=== PATIENT | female | born 1935 | race Caucasian/White ===

== ENCOUNTER → 2017-03-09 | Outpatient (CLI) | payer MEDICARE, BC ==
[2014-12-08 14:00] VITALS: BP 112/64
[~2017-03-09] MED LIST: APIX2.5T PO; ASPI325T8 PO; ATOR20TA58 PO; CARV6.25 PO; CHOL10003 PO; FLEC100T PO; FLUT1DIS IH; HYDR1TAB12 PO; LENA5CAP PO; OMEP20CA5 PO; ONDA8TAB9 PO; VIT1CAPS12 PO
--- NOTE | 2017-03-09 11:12 | CARD ---
MR#: [id number] Date of Study: 03/09/2017 Ordering Physician: ORALIA EMERSON, Referring Physician: ORALIA EMERSON, Reg: Odette Lerner RCS5 APPROVED REPORT EXAM: Two-dimensional and M-mode echocardiogram with Doppler and color Doppler. Other Information Quality : Average INDICATION Abnormal ECG Tachycardia 2D DIMENSIONS Left Atrium(2D)3.8 (1.6-4.0cm)IVSd0.7 (0.7-1.1cm) Aortic Root(2D)2.6 (2.0-3.7cm)LVDd4.8 (3.9-5.9cm) LVOT Diameter1.8 (1.8-2.4cm)PWd0.7 (0.7-1.1cm) LVDs3.2 (2.5-4.0cm)FS (%) 32.0 % SV67.1 mlLVEF(%)60.0 (>50%) Aortic Valve AoV Peak Matti.250.9cm/sAoV VTI61.3cm AO Peak GR.25.2mmHgLVOT Peak Matti.79.2cm/s LVOT VTI 18.48cmAO Mean GR.15mmHg Mitral Valve MV E Scvebggi093.8cm/sMV DECEL NYET668im MV A Gslnnlga38.8cm/sE/A Ratio1.5 Tricuspid Valve TR P. Lrmioznz10ed/sRAP ATMYULSA5csWo TR Peak Gr.45brWqBONZ52klBw LEFT VENTRICLE The left ventricle is normal size. There is normal left ventricular wall thickness. The left ventricu lar systolic function is normal. The Ejection Fraction is 55-60%. There is normal LV segmental wall m otion. RIGHT VENTRICLE The right ventricle is normal size. There is normal right ventricular wall thickness. The right ventr icular systolic function is normal. There is a pacer wire seen in the right ventricle. ATRIA The left atrium size is normal. The right atrium size is normal. There is a pacer wire seen in the ri ght atria. The interatrial septum is intact with no evidence for an atrial septal defect or patent fo ramen ovale as noted on 2-D or Doppler imaging. AORTIC VALVE The aortic valve is mildly to moderately sclerotic. Doppler and Color Flow revealed mild aortic regur gitation. There is mild valvular aortic stenosis. MITRAL VALVE The mitral valve is normal in structure and function. There is no evidence of mitral valve prolapse. There is no mitral valve stenosis. Doppler and Color-flow revealed trace mitral regurgitation. TRICUSPID VALVE The tricuspid valve is normal in structure and function. Doppler and Color Flow revealed mild tricusp id regurgitation. PULMONIC VALVE The pulmonary valve is normal in structure and function. Doppler and Color Flow revealed trace pulmon ic valvular regurgitation. GREAT VESSELS The aortic root is normal in size. The ascending aorta is normal in size. The IVC is normal in size a nd collapses >50% with inspiration. PERICARDIAL EFFUSION There is no pleural effusion. There is no evidence of significant pericardial effusion. Critical Notification Critical Value: No <Conclusion> The left ventricular systolic function is normal. The Ejection Fraction is 55-60%. There is normal LV segmental wall motion. Mild valvular aortic stenosis. Regurgitant jet not well interrogated but there ia atleast mild aortic regurgitation. Trace mitral regurgitation. Mild tricuspid regurgitation. There is no evidence of significant pericardial effusion. Signed by : Oralia Emerson, Electronically Approved : 03/09/2017 11:12:18
== END | disposition home or self-care (01) ==
LOC: ECHO 08:41
PROVIDERS: ATTEND Internal Medicine Cardiovascular Disease
DX: I49.5 Sick sinus syndrome (principal); I08.3 Combined rheumatic disorders of mitral, aortic and tricuspid valves; I10 Essential (primary) hypertension; Z87.891 Personal history of nicotine dependence
CPT/HCPCS: 93306

== ENCOUNTER → 2018-06-07 | Outpatient (CLI) | payer MEDICARE, BC ==
[2014-12-08 14:00] VITALS: BP 112/64
[~2018-06-07] MED LIST changes: -HYDR1TAB12 PO; +HYDR1TAB13 PO
--- NOTE | 2018-06-07 09:36 | CARD ---
MR#: [id number] Date of Study: 06/07/2018 Ordering Physician: ORALIA DUMAS, Referring Physician: ORALIA DUMAS Tech: Nilsa Malhotra RDCS APPROVED REPORT EXAM: Two-dimensional and M-mode echocardiogram with Doppler and color Doppler. Other Information Quality : AverageHR: 61bpm Rhythm : Pacemaker INDICATION Arrhythmia 2D DIMENSIONS RVDd2.9 (2.9-3.5cm)Left Atrium(2D)4.0 (1.6-4.0cm) IVSd1.1 (0.7-1.1cm)Aortic Root(2D)2.4 (2.0-3.7cm) LVDd4.6 (3.9-5.9cm)LVOT Diameter1.9 (1.8-2.4cm) PWd0.9 (0.7-1.1cm)LVDs3.1 (2.5-4.0cm) FS (%) 32.7 %SV58.4 ml LVEF(%)61.2 (>50%) M-Mode DIMENSIONS Left Atrium(MM)4.37 (2.5-4.0cm)Aortic Root2.46 (2.2-3.7cm) Aortic Valve AoV Peak Matti.255.8cm/sAoV VTI69.7cm AO Peak GR.26.2mmHgLVOT Peak Matti.86.4cm/s LVOT VTI 23.27cmAO Mean GR.14mmHg TRAY (VMAX)1.21ql9UNR (VTI)1.10cm2 AI P 1/2 Znna977wh Mitral Valve MV E Sszilucj29.4cm/sMV DECEL WBOA309xm MV A Shvfsxnu73.4cm/sE/A Ratio1.6 MV A Yxxzzpte520tm Pulmonary Valve PV Peak Myouprrv362.4cm/sPV Peak Grad.4mmHg Tricuspid Valve TR P. Ozzziqkc632nf/sRAP DVKFJBAP1xgDv TR Peak Gr.64hwRvAOSE46fgFs LEFT VENTRICLE The left ventricle is normal size. Proximal septal thickening is noted. The left ventricular systolic function is normal. The Ejection Fraction is 60-65%. There is normal LV segmental wall motion. Trans mitral Doppler flow pattern is Grade II-pseudonormal filling dynamics. RIGHT VENTRICLE The right ventricle is normal size. There is normal right ventricular wall thickness. The right ventr icular systolic function is normal. ATRIA The left atrium is mildly dilated. The right atrium size is normal. The interatrial septum is intact with no evidence for an atrial septal defect or patent foramen ovale as noted on 2-D or Doppler imagi ng. AORTIC VALVE The aortic valve is moderately calcified. Doppler and Color Flow revealed mild aortic regurgitation. There is mild to moderate valvular aortic stenosis. Calculated aortic valve area is 1.1 cm2 with maxi mum pressure gradient of 26 mmHg and mean pressure gradient of 14 mmHg. MITRAL VALVE The mitral valve is thickened but opens well. There is no evidence of mitral valve prolapse. There is no mitral valve stenosis. Doppler and Color Flow revealed no mitral valve regurgitation noted. TRICUSPID VALVE The tricuspid valve is normal in structure and function. Doppler and Color Flow revealed mild tricusp id regurgitation. There is moderate pulmonary hypertension. The PA pressure was estimated at 46 mmHg. There is no tricuspid valve prolapse or vegetation. There is no tricuspid valve stenosis. PULMONIC VALVE The pulmonic valve is not well visualized. GREAT VESSELS The aortic root is normal in size. The ascending aorta is normal in size. The IVC is normal in size a nd collapses >50% with inspiration. PERICARDIAL EFFUSION There is no evidence of significant pericardial effusion. Critical Notification Critical Value: No <Conclusion> The left ventricular systolic function is normal. The Ejection Fraction is 60-65%. There is normal LV segmental wall motion. There is mild to moderate valvular aortic stenosis. Mild aortic regurgitation. Mild tricuspid regurgitation. The PA pressure was estimated at 46 mmHg. There is no evidence of significant pericardial effusion. Signed by : Oralia Dumas, Electronically Approved : 06/07/2018 09:35:36
== END | disposition home or self-care (01) ==
LOC: ECHO 07:40
PROVIDERS: ATTEND Internal Medicine Cardiovascular Disease
DX: I08.2 Rheumatic disorders of both aortic and tricuspid valves (principal); I27.20 Pulmonary hypertension, unspecified; I49.5 Sick sinus syndrome; Z87.891 Personal history of nicotine dependence
CPT/HCPCS: 93306

== ENCOUNTER → 2019-07-18 | Outpatient (CLI) | payer MEDICARE, BC ==
[2014-12-08 14:00] VITALS: BP 112/64
--- NOTE | 2019-07-18 16:01 | CARD ---
MR#: [id number] Date of Study: 07/18/2019 Ordering Physician: ORALIA EMERSON, Referring Physician: ORALIA EMERSON Tech: Jessika Blanco RDCS APPROVED REPORT EXAM: Two-dimensional and M-mode echocardiogram with Doppler and color Doppler. Other Information Quality : Good INDICATION Tachy Syndrome, Pacemaker 2D DIMENSIONS RVDd2.7 (2.9-3.5cm)Left Atrium(2D)3.9 (1.6-4.0cm) IVSd1.0 (0.7-1.1cm)Aortic Root(2D)2.6 (2.0-3.7cm) LVDd5.0 (3.9-5.9cm)LVOT Diameter2.1 (1.8-2.4cm) PWd1.0 (0.7-1.1cm)LVDs3.4 (2.5-4.0cm) FS (%) 31.7 %SV70.2 ml LVEF(%)59.5 (>50%) Aortic Valve AoV Peak Matti.275.9cm/sAoV VTI65.7cm AO Peak GR.30.4mmHgLVOT Peak Matti.102.9cm/s LVOT VTI 23.54cmAO Mean GR.18mmHg TRAY (VMAX)1.81lg5XTT (VTI)1.25cm2 AI P 1/2 Wvlw266gw Mitral Valve MV E Afvzydmo92.7cm/sMV DECEL SLYO590bz MV A Oljvqkxd53.2cm/sE/A Ratio1.0 Tricuspid Valve TR P. Qwrrhyqv446mu/sRAP QJCEGTUP3pvRk TR Peak Gr.16waLyZQNO27fvOy LEFT VENTRICLE The left ventricle is normal size. There is normal left ventricular wall thickness. The left ventricu lar systolic function is normal and the ejection fraction is within normal range. The Ejection Fracti on is 60-65%. There is normal LV segmental wall motion. Transmitral Doppler flow pattern is Grade I-a bnormal relaxation pattern. RIGHT VENTRICLE The right ventricle is normal size. The right ventricular systolic function is normal. There is a pac emaker lead in the right ventricle. ATRIA The left atrium size is normal. The right atrium size is normal. A pacemaker is seen in the right atr ium consistent with history. The interatrial septum is intact with no evidence for an atrial septal d efect or patent foramen ovale as noted on 2-D or Doppler imaging. AORTIC VALVE The aortic valve is calcified and displays decreased opening. Doppler and Color Flow revealed mild ao rtic regurgitation. Calculated aortic valve area is 1.3 cm2 with maximum pressure gradient of 30 mmHg and mean pressure gradient of 18 mmHg. Doppler and color-flow analysis revealed moderate aortic sten osis. MITRAL VALVE The mitral valve is calcified but opens well. Mitral annular calcification is mild. There is no evide nce of mitral valve prolapse. There is no mitral valve stenosis. Doppler and Color-flow revealed trac e mitral regurgitation. TRICUSPID VALVE The tricuspid valve is normal in structure and function. Doppler and Color Flow revealed trace tricus pid regurgitation. There is moderate pulmonary hypertension. The PA pressure was estimated at 42 mmHg . There is no tricuspid valve stenosis. PULMONIC VALVE The pulmonic valve is not well visualized. Doppler and Color Flow revealed no pulmonic valvular regur gitation. There is no pulmonic valvular stenosis. GREAT VESSELS The aortic root is normal in size. The ascending aorta is normal in size. The IVC is normal in size a nd collapses >50% with inspiration. PERICARDIAL EFFUSION There is no evidence of significant pericardial effusion. Critical Notification Critical Value: No <Conclusion> The left ventricular systolic function is normal and the ejection fraction is within normal range. Th e Ejection Fraction is 60-65%. There is normal LV segmental wall motion. There is a pacemaker lead in the right ventricle. Calculated aortic valve area is 1.3 cm2 with maximum pressure gradient of 30 mmHg and mean pressure g radient of 18 mmHg. Doppler and color-flow analysis revealed moderate aortic stenosis. Doppler and Color Flow revealed mild aortic regurgitation. Doppler and Color Flow revealed trace tricuspid regurgitation. There is moderate pulmonary hypertensi on. The PA pressure was estimated at 42 mmHg. Signed by : Mitul Pool, Electronically Approved : 07/18/2019 16:01:19
== END | disposition home or self-care (01) ==
LOC: ECHO 14:39
PROVIDERS: ATTEND Internal Medicine Cardiovascular Disease
DX: I08.0 Rheumatic disorders of both mitral and aortic valves (principal); I27.20 Pulmonary hypertension, unspecified; I49.5 Sick sinus syndrome
CPT/HCPCS: 93306

== ENCOUNTER → 2019-11-23 | Outpatient (CLI) | payer MEDICARE, BC ==
[2014-12-08 14:00] VITALS: BP 112/64
[2019-11-23] MEDS: REGADENOSON 0.4 MG/5 ML DISP.SYRIN. IV ONE (08:45)
--- NOTE | 2019-11-23 17:19 | RAD ---
MR#: [id number] Date of Study: 11/23/2019 Ordering Physician: ORALIA EMERSON, Referring Physician: WINNIE SENA Tech: RT Moises (R) (N) APPROVED REPORT Test Type: Pharmacological Stress Nurse/Tech: Sara Brunson RN Test Indications: E.[place] Cardiac History: CAD Medications: See EHR Medical History: See Electronic Medical Record Resting Heart Rate: 60 bpm Resting Blood Pressure: 161/61mmHg Pretest Chest Pain: No chest pain Pharm. Details Pharmacologic stress testing was performed using 0.4mg per 5ml of regadenoson given intravenously ove r 7-10 seconds. Stress Symptoms Dyspnea, headache POST EXERCISE Reason for Termination: Infusion complete Max HR: 121 bpm Chest Pain: No. Arrhythmia: No. ST Change: No. INTERPRETATION Stress EKG Conclusion: The resting EKG shows a sinus rhythm with some atrially paced beats and nonspe cific ST segment changes. The stress EKG shows no significant changes from baseline. No EKG evidence of stress-induced ischemia. Imaging Protocol IMAGE PROTOCOL: Rest Tc-99m/stress Tc-99m 1 day Rest: Stress: Viability: Radiopharm.Tc99m LpiwgsoblOg34n Sestamibi Berb14nSw 33mCi Duration 15min. 15min. Img Date 11/23/2019 11/23/2019 Inj-Img Fdal97ddd. 60min. Rest Admin Site:IV - Left AntecubitalAdministrator: RT Moises (R)(N) Stress Admin Site: IV - Left AntecubitalAdministrator: RT Moises (R)(N) STRESS DATA End Diast. Vol.42.0mlAv. Heart Rate61.0bpm End Syst. Vol.8.0mlCO Index BSA0.0L/min Myocardial Mass84.0gEject. Rcrjggsl78.0% Stress Rates Pk. Fill Rate2.60EDV/secLVtime Pk. Fill 124.15msec Pk. Empty Rate4.90ESV/secLVtime Pk. Cxosa794.78msec 1/3 Pk. Fill1.87EDV/sec Stress Scores Regional WT2.00Summed WT9.00 Regional WM0.00Summed WM2.00 LV Perfusion The stress scans showed no significant defects. The rest scans showed no significant defects. Nuclear imaging shows no reversible ischemia or infarct. Wall Motion Left ventricular systolic function is normal with no regional wall motion abnormalities and an ejecti on fraction of greater than 70%. LV Perf. Quant 17 Seg. SSS4.00 17 Seg. SRS2.00 17 Seg. SDS2.00 Stress Defect Extent (% LAD)0.00Rest Defect Extent (% LAD)0.00Rev. Defect Extent (% LAD)0.00 Stress Defect Extent (% LCX) 50.00Rest Defect Extent (% LCX)22.50Rev. Defect Extent (% LCX)5.00 Stress Defect Extent (% RCA)0.00Rest Defect Extent (% RCA)0.00Rev. Defect Extent (% RCA)0.00 Stress Defect Extent (% PATO)8.70Rest Defect Extent (% PATO)3.90Rev. Defect Extent (% PATO)0.90 Conclusion 1. No EKG evidence of stress-induced ischemia. 2. Nuclear imaging shows no reversible ischemia or infarct. 3. Normal left ventricular systolic function with an ejection fraction of greater than 70%. 4. Moderately low to low risk Lexiscan nuclear stress test. Signed by : Guanaco Forrest MD Electronically Approved : 11/23/2019 17:18:45
== END ==
LOC: NM 08:18
PROVIDERS: ATTEND Internal Medicine Cardiovascular Disease
DX: I25.10 Atherosclerotic heart disease of native coronary artery without angina pectoris (principal)
CPT/HCPCS: 78452; 93017; A9500; J2785

== ENCOUNTER → 2020-05-21 | Outpatient (CLI) | payer MEDICARE, BC ==
[2014-12-08 14:00] VITALS: BP 112/64
--- NOTE | 2020-05-21 16:13 | CARD ---
MR#: [id number] Date of Study: 05/21/2020 Ordering Physician: ORALIA EMERSON, Referring Physician: ORALIA EMERSON, Tech: Jessika Blanco RDCS APPROVED REPORT EXAM: Two-dimensional and M-mode echocardiogram with Doppler and color Doppler. Other Information Quality : Good INDICATION Tachy-Dany Syndrome 2D DIMENSIONS RVDd2.5 (2.9-3.5cm)Left Atrium(2D)3.9 (1.6-4.0cm) IVSd1.0 (0.7-1.1cm)Aortic Root(2D)2.5 (2.0-3.7cm) LVDd4.0 (3.9-5.9cm)PWd0.9 (0.7-1.1cm) LVDs2.9 (2.5-4.0cm)FS (%) 27.5 % SV38.2 mlLVEF(%)54.0 (>50%) Aortic Valve AoV Peak Matti.221.7cm/sAoV VTI51.7cm AO Peak GR.19.7mmHgAO Mean GR.12mmHg TRAY (VTI)1.35cm2 Mitral Valve MV E Mbmsuuft84.1cm/sMV DECEL GTYD826kv MV A Epvewofk35.4cm/sE/A Ratio0.8 Tricuspid Valve TR P. Qzejzbtq260so/sRAP MYTCKAGQ6uwJd TR Peak Gr.15vyAeGWZI07asPc LEFT VENTRICLE The left ventricle is normal size. There is normal left ventricular wall thickness. The left ventricu lar systolic function is normal. The Ejection Fraction is 60-65%. There is normal LV segmental wall m otion. Transmitral Doppler flow pattern is Grade I-abnormal relaxation pattern. RIGHT VENTRICLE The right ventricle is normal size. The right ventricular systolic function is normal. ATRIA The left atrium size is normal. The right atrium size is normal. The interatrial septum is intact wit h no evidence for an atrial septal defect or patent foramen ovale as noted on 2-D or Doppler imaging. AORTIC VALVE The aortic valve is not well visualized but appears to be decreased opening by Doppler interrogation. Doppler and Color Flow revealed trace aortic regurgitation. Calculated aortic valve area is 1.35 cm2 with maximum pressure gradient of 20 mmHg and mean pressure gradient of 12 mmHg. Doppler and color-f low analysis revealed moderate aortic stenosis. MITRAL VALVE The mitral valve is calcified but opens well. There is no evidence of mitral valve prolapse. There is no mitral valve stenosis. Doppler and Color-flow revealed trace mitral regurgitation. TRICUSPID VALVE The tricuspid valve is normal in structure and function. Doppler and Color Flow revealed trace tricus pid regurgitation. There is mild pulmonary hypertension. The PA pressure was estimated at 33 mmHg. Th ere is no tricuspid valve stenosis. PULMONIC VALVE The pulmonic valve is not well visualized. Doppler and Color Flow revealed no pulmonic valvular regur gitation. There is no pulmonic valvular stenosis. GREAT VESSELS The aortic root is normal in size. The ascending aorta is normal in size. The IVC is normal in size a nd collapses >50% with inspiration. PERICARDIAL EFFUSION There is no evidence of significant pericardial effusion. Critical Notification Critical Value: No <Conclusion> The left ventricular systolic function is normal. The Ejection Fraction is 60-65%. There is normal LV segmental wall motion. Transmitral Doppler flow pattern is Grade I-abnormal relaxation pattern. Moderate aortic stenosis. Trace mitral regurgitation. Trace tricuspid regurgitation. The PA pressure was estimated at 33 mmHg. There is no evidence of significant pericardial effusion. Signed by : Oralia Emerson, Electronically Approved : 05/21/2020 16:12:55
== END ==
LOC: ECHO 13:44
PROVIDERS: ATTEND Internal Medicine Cardiovascular Disease
DX: I08.0 Rheumatic disorders of both mitral and aortic valves (principal); I27.20 Pulmonary hypertension, unspecified; I49.5 Sick sinus syndrome
CPT/HCPCS: 93306

== ENCOUNTER → 2020-06-25 | Outpatient (CLI) | payer MEDICARE, BC ==
[2014-12-08 14:00] VITALS: BP 112/64
--- NOTE | 2020-06-25 11:43 | RAD ---
EXAM: Chest, 2 views. HISTORY: Cough. COMPARISON: None. FINDINGS: 2 views of the chest are obtained. There is no infiltrate, pleural effusion or pneumothorax . The heart is normal in size. There is bilateral infrahilar atelectasis or scarring. There is a card iac pacemaker with leads in expected position. IMPRESSION: No acute pulmonary finding. Electronically signed by: Paige Ruth MD (06/25/2020 11:40 AM) [id number]
[2020-06-25 12:06] LABS: BASO % 1 % (0-3); EOS # 0.1 x10^3/uL (0.0-0.7); EOS % 1 % (0-3); HEMATOCRIT 35.8 % (36.0-47.0); HEMOGLOBIN 11.6 g/dL (12.0-15.5); LYMPH # 1.2 x10^3/uL (1.0-4.8); LYMPH % 13 % (24-48); MEAN CORPUSCULAR HEMOGLOBIN 29 pg (25-35); MEAN CORPUSCULAR HGB CONC 32 g/dL (31-37); MEAN CORPUSCULAR VOLUME 90 fL (79-100); MONO # 0.9 x10^3/uL (0.0-1.1); MONO % 9 % (0-9); NEUT # 7.2 x10^3uL (1.8-7.7); NEUT % 76 % (31-73); PLATELET COUNT 182 x10^3/uL (140-400); RED BLOOD COUNT 3.97 x10^6/uL (3.50-5.40); RED CELL DISTRIBUTION WIDTH 15.4 % (11.5-14.5); WHITE BLOOD COUNT 9.5 x10^3/uL (4.0-11.0)
[2020-06-25 12:16] LABS: ALBUMIN 3.2 g/dL (3.4-5.0); ALBUMIN/GLOBULIN RATIO 0.9 (1.0-1.7); CALCIUM 9.2 mg/dL (8.5-10.1); CREATININE 1.6 mg/dL (0.6-1.0); GFR 30.7; POTASSIUM 4.2 mmol/L (3.5-5.1); TOTAL BILIRUBIN 0.4 mg/dL (0.2-1.0); TOTAL PROTEIN 6.7 g/dL (6.4-8.2)
== END ==
LOC: LAB 11:16
PROVIDERS: ATTEND Specialist
DX: J06.9 Acute upper respiratory infection, unspecified (principal); R05 Cough; Z20.822 Contact with and (suspected) exposure to COVID-19
CPT/HCPCS: 36415; 71046; 80053; 85025; U0003

== ENCOUNTER → 2021-05-27 | Outpatient (CLI) | payer MEDICARE, BC ==
[2014-12-08 14:00] VITALS: BP 112/64
--- NOTE | 2021-05-27 17:03 | CARD ---
MR#: [id number] Date of Study: 05/27/2021 Ordering Physician: ORALIA EMERSON, Referring Physician: ORALIA EMERSON Tech: Wagner Lau [facility] APPROVED REPORT EXAM: Two-dimensional and M-mode echocardiogram with Doppler and color Doppler. Other Information Quality : AverageHR: 60bpm Rhythm : NSR INDICATION Tachy-orselia syndrome RISK FACTORS Hypertension 2D DIMENSIONS Left Atrium(2D)4.0 (1.6-4.0cm)IVSd1.2 (0.7-1.1cm) Aortic Root(2D)2.8 (2.0-3.7cm)LVDd4.4 (3.9-5.9cm) LVOT Diameter1.8 (1.8-2.4cm)PWd1.2 (0.7-1.1cm) LA Kqmjjs06 (18-58mL)LVDs3.0 (2.5-4.0cm) FS (%) 21.0 %SV37.8 ml Aortic Valve AoV Peak Matti.236.4cm/sAoV VTI60.8cm AO Peak GR.23.5mmHgLVOT Peak Matti.89.0cm/s LVOT VTI 25.48cmAO Mean GR.13mmHg TRAY (VMAX)0.11bh2MTM (VTI)1.10cm2 AI P 1/2 Jgcw199rw Mitral Valve MV E Bxlfjtcb42.0cm/sMV E Peak Gr.4mmHg MV DECEL DTWK803diXT A Vtzsqmtu23.0cm/s MV E Mean Gr.1mmHgE/A Ratio1.5 Pulmonary Valve PV Peak Lufupbnm93.0cm/sPV Peak Grad.2mmHg Tricuspid Valve TR P. Jkoqzhlg927je/sTR Peak Gr.22mmHg LEFT VENTRICLE The left ventricle is normal size. There is mild concentric left ventricular hypertrophy. The left ve ntricular systolic function is normal and the ejection fraction is within normal range. The Ejection Fraction is 55-60%. There is normal LV segmental wall motion. Transmitral Doppler flow pattern is Gra de II-pseudonormal filling dynamics. No left ventricle thrombus noted on this study. There is no vent ricular septal defect visualized. There is no left ventricular aneurysm. There is no mass noted in th e left ventricle. RIGHT VENTRICLE The right ventricle is normal size. There is normal right ventricular wall thickness. The right ventr icular systolic function is normal. ATRIA The left atrium is mildly dilated. The right atrium size is normal. The interatrial septum is intact with no evidence for an atrial septal defect or patent foramen ovale as noted on 2-D or Doppler imagi ng. AORTIC VALVE The aortic valve is calcified and displays decreased opening. Doppler and Color Flow revealed trace t o mild aortic regurgitation. There is mild valvular aortic stenosis. Calculated aortic valve area is 1.1 cm2 with maximum pressure gradient of 24 mmHg and mean pressure gradient of 13 mmHg. There is no aortic valvular vegetation. MITRAL VALVE The mitral valve is thickened but opens well. Mitral annular calcification is mild. There is no evide nce of mitral valve prolapse. There is no mitral valve stenosis. There is trace mitral valve regurgit ation. TRICUSPID VALVE The tricuspid valve is normal in structure and function. Doppler and Color Flow revealed trace tricus pid regurgitation. The PA pressure was estimated at 26 mmHg. There is no tricuspid valve prolapse or vegetation. There is no tricuspid valve stenosis. PULMONIC VALVE The pulmonary valve is normal in structure and function. There is no pulmonic valvular regurgitation. There is no pulmonic valvular stenosis. GREAT VESSELS The aortic root is normal in size. The ascending aorta is normal in size. The pulmonary artery is nor mal. The IVC is normal in size and collapses >50% with inspiration. PERICARDIAL EFFUSION There is no pleural effusion. The pericardium appears normal. Critical Notification Critical Value: No <Conclusion> The left ventricle is normal size. The left ventricular systolic function is normal and the ejection fraction is within normal range. The Ejection Fraction is 55-60%. There is mild concentric left ventricular hypertrophy. Doppler and Color Flow revealed trace to mild aortic regurgitation. There is mild valvular aortic stenosis. Calculated aortic valve area is 1.1 cm2 with maximum pressure gradient of 24 mmHg and mean pressure g radient of 13 mmHg. There is trace mitral valve regurgitation. Doppler and Color Flow revealed trace tricuspid regurgitation. The PA pressure was estimated at 26 mmHg. Signed by : Guanaco Forrest MD Electronically Approved : 05/27/2021 17:03:00
== END ==
LOC: ECHO 10:42
PROVIDERS: ATTEND Internal Medicine Cardiovascular Disease
DX: I08.0 Rheumatic disorders of both mitral and aortic valves (principal); I49.5 Sick sinus syndrome
CPT/HCPCS: 93306